=== PATIENT | female | born 1985 | race Caucasian/White ===

== ENCOUNTER 2021-03-28 09:27 | Inpatient (IN) ==
[2021-03-28] MEDS: LACTATED RINGERS 1,000 ML IV SCH ×2 (10:15→11:39)
[2021-03-28] MEDS ORDERED: FAMOTIDINE 20 MG/2 ML VIAL IV ONE (10:19)
[2021-03-28] MEDS ORDERED: ceFAZolin 2,000 MG/50 ML DUPLEX IV ONE (10:19)
[2021-03-28] MEDS ORDERED: CITRIC ACID/SODIUM CITRATE 30 ML UDCUP PO ONE (10:19)
[2021-03-28 10:45] LABS: Basophils % 0.4 % (0.0-0.8); Eosinophils # 0.1 10*3/uL (0.0-0.87); Eosinophils % 0.8 % (0.00-10.9); Hematocrit 33.1 VOL% (35.7-47.0); Hemoglobin 10.8 GM/DL (12.0-16.0); Immature Granulocytes % 1.6 %; Immature Granulocytes Absolute 0.16 #; Lymphocytes # 1.4 10*3/uL (1.4-4.0); Lymphocytes % 14.7 % (21.3-54.2); Mean Corpuscular HGB Conc 32.6 GM/DL (32-36); Mean Corpuscular Volume 83.6 FL (87-102); Mean Platelet Volume 10.6 FL (9.6-12.0); Monocytes % 5.2 % (1.7-12.7); Neutrophils % 77.3 % (38.7-73.9); Platelet Count 207 T/CUMM (130-400); Red Blood Count 3.96 MC/CUMM (3.8-5.5); Red Cell Distribution Width 15.2 % (9.3-17.3); White Blood Count 9.7 T/CUMM (4-12)
[2021-03-28 10:58] LABS: Bacteria,Urine Occasional /HPF (Few); Bilirubin,Urine Negative (Negative); Blood, Urine Moderate mg/dL (Negative); Glucose,Urine (UA) Negative (Negative); Ketones,Urine Negative (Negative); Mucus,Urine Few /LPF (Occasional); Nitrite,Urine Negative (Negative); Protein,Urine 100 MG/DL; RBC,Urine 72 /HPF (0-4); Squamous Epithelial Cell,Urine Few /HPF (0-10); Urine Appearance Slightly Hazy (Clear); Urine Color Yellow (Yellow); Urine Specific Gravity 1.017 (1.001-1.035); Urine Urobilinogen < 2.0 EU/DL (0.2-1.0)
[2021-03-28 11:09] LABS: Alanine Aminotransferase 10 U/L (13-56); Albumin 2.6 G/DL (3.4-5.0); Alkaline Phosphatase 121 U/L (45-117); Aspartate Amino Transferase 14 U/L (0-37); Bilirubin,Total < 0.39 MG/DL (0.20-1.00); Blood Urea Nitrogen 9 MG/DL (7-18); Carbon Dioxide 19 MMOL/L (21-32); Estimated Glom Filtration Rate 139 ML/MIN; Glucose 87 MG/DL (74-106); Osmolality,Calculated 270.8 MOS/KG (273-304); Potassium 4.1 MMOL/L (3.5-5.1); Sodium 137 MMOL/L (136-145); Total Protein 7.2 G/DL (6.4-8.2)
[2021-03-28] MEDS ORDERED: ONDANSETRON 4 MG/2 ML VIAL IV PRN (12:03)
[2021-03-28] MEDS ORDERED: MEPERIDINE 50 MG/1 ML VIAL IV ONE (12:03)
[2021-03-28] MEDS ORDERED: OXYTOCIN/LR 20 UNIT/1,000 ML BAG IV ONE ×3 (13:29→17:39)
[2021-03-28] MEDS ORDERED: METHYLERGONOVINE 0.2 MG/1 ML AMP ONE (13:29)
[2021-03-28] MEDS ORDERED: miSOPROStoL 200 MCG TABLET ONE (13:29)
[2021-03-28] MEDS ORDERED: CARBOPROST TROMETHAMINE 250 MCG/ML AMP IM ONE (13:30)
[2021-03-28] MEDS ORDERED: PHENYLEPHRINE 1 MG/10 ML SYRINGE IV ONE (13:48)
[2021-03-28] MEDS ORDERED: BUPIVACAINE SPINAL 0.75% 2 ML AMP SPINAL ONE (13:48)
[2021-03-28] MEDS ORDERED: ONDANSETRON 4 MG/2 ML VIAL ONE (13:48)
[2021-03-28 14:47] LABS: Cord Arterial Blood HCO3 20.4 MMOL/L
[2021-03-28 14:50] LABS: Cord Venous Blood HCO3 21.5 MMOL/L; Cord Venous Blood PCO2 44.6 MMHG; Cord Venous Blood PO2 23.3
[2021-03-28 15:02] LABS: Bacteria,Urine Occasional /HPF (Few); Bilirubin,Urine Negative (Negative); Blood, Urine Negative (Negative); Glucose,Urine (UA) Negative (Negative); Hyaline Casts,Urine 1 /LPF (0-3); Ketones,Urine 80 mg/dL (Negative); Mucus,Urine Occasional /LPF (Occasional); Nitrite,Urine Negative (Negative); Protein,Urine Negative; RBC,Urine 1 /HPF (0-4); Urine Appearance CLEAR (Clear); Urine Color Yellow (Yellow); Urine Specific Gravity 1.019 (1.001-1.035); Urine Urobilinogen < 2.0 EU/DL (0.2-1.0)
[2021-03-28] MEDS ORDERED: ACETAMINOPHEN INJ 1,000 MG/100 ML VIAL IV ONE (15:12)
[2021-03-28] MEDS ORDERED: RHO(D) IMMUNE GLOBULIN 300 MCG SYRINGE IM ONE (17:39)
[2021-03-28] MEDS ORDERED: ACETAMINOPHEN 325 MG TABLET PO PRN (17:39)
[2021-03-28] MEDS ORDERED: IBUPROFEN 800 MG TABLET PO PRN (17:39)
[2021-03-28] MEDS: ACETAMINOPHEN 500 MG TABLET PO SCH (21:42)
[2021-03-28] MEDS: KETOROLAC 30 MG/1 ML VIAL IV SCH (22:37)
[2021-03-28] MEDS: DOCUSATE SODIUM 100 MG CAPSULE PO SCH (22:45)
[2021-03-29] MEDS: KETOROLAC 30 MG/1 ML VIAL IV SCH ×2 (04:26→10:04)
[2021-03-29] MEDS: ACETAMINOPHEN 500 MG TABLET PO SCH ×2 (04:26→09:00)
[2021-03-29 06:16] LABS: Basophils % 0.3 % (0.0-0.8); Eosinophils # 0.2 10*3/uL (0.0-0.87); Eosinophils % 1.3 % (0.00-10.9); Hematocrit 26.1 VOL% (35.7-47.0); Hemoglobin 8.2 GM/DL (12.0-16.0); Immature Granulocytes Absolute 0.12 #; Lymphocytes # 1.4 10*3/uL (1.4-4.0); Lymphocytes % 11.6 % (21.3-54.2); Mean Corpuscular HGB Conc 31.4 GM/DL (32-36); Mean Corpuscular Volume 85.9 FL (87-102); Mean Platelet Volume 10.3 FL (9.6-12.0); Neutrophils % 81.8 % (38.7-73.9); Platelet Count 149 T/CUMM (130-400); Red Blood Count 3.04 MC/CUMM (3.8-5.5); Red Cell Distribution Width 15.3 % (9.3-17.3); White Blood Count 11.7 T/CUMM (4-12)
[2021-03-29] MEDS: oxyCODONE/ACETAMINOPHEN 5-325 MG TABLET PO PRN ×3 (07:34→19:55)
[2021-03-29] MEDS: DOCUSATE SODIUM 100 MG CAPSULE PO SCH ×2 (07:34→19:55)
[2021-03-29] MEDS: MULTIVITAMIN (PRENATAL) TABLET PO SCH (07:34)
[2021-03-29] MEDS ORDERED: oxyCODONE/ACETAMINOPHEN 5-325 MG TABLET ONE (07:37)
[2021-03-29] MEDS: MAGNESIUM HYDROXIDE SUSP 30 ML UDCUP PO PRN ×2 (07:40→19:55)
[2021-03-29] MEDS: SIMETHICONE CHEW 80 MG TABLET PO PRN (14:01)
[2021-03-29] MEDS: FERROUS SULFATE 325 MG TABLET PO SCH (21:15)
[2021-03-30] MEDS: IBUPROFEN 800 MG TABLET PO PRN ×4 (00:30→22:40)
[2021-03-30] MEDS: SIMETHICONE CHEW 80 MG TABLET PO PRN ×2 (00:30→19:58)
[2021-03-30] MEDS: MULTIVITAMIN (PRENATAL) TABLET PO SCH (07:24)
[2021-03-30] MEDS: FERROUS SULFATE 325 MG TABLET PO SCH ×3 (07:24→21:09)
[2021-03-30] MEDS: DOCUSATE SODIUM 100 MG CAPSULE PO SCH ×2 (07:24→19:59)
[2021-03-30] MEDS ORDERED: BISACODYL 10 MG SUPP RECTAL PRN (09:52)
[2021-03-30] MEDS: oxyCODONE/ACETAMINOPHEN 5-325 MG TABLET PO PRN ×3 (11:34→23:32)
[2021-03-30] MEDS ORDERED: HYDROCORTISONE 2.5% CREAM 30 GM TUBE TOP PRN (19:49)
[2021-03-30] MEDS: MAGNESIUM HYDROXIDE SUSP 30 ML UDCUP PO PRN (19:59)
[2021-03-30] MEDS ORDERED: KETOROLAC 30 MG/1 ML VIAL IM ONE (22:25)
[2021-03-31] MEDS: IBUPROFEN 800 MG TABLET PO PRN (06:49)
[2021-03-31] MEDS: oxyCODONE/ACETAMINOPHEN 5-325 MG TABLET PO PRN ×2 (06:50→11:39)
[2021-03-31 07:28] LABS: HIV Antigen/Antibody Result Nonreactive (Nonreactive); Hepatitis B Surface Ag Quant < 0.10 Index; Hepatitis B Surface Ag Result Non-Reactive (NonReactive); Rubella Antibody IgG Result Reactive (NonReactive)
[2021-03-31] MEDS: MULTIVITAMIN (PRENATAL) TABLET PO SCH (08:46)
[2021-03-31] MEDS: DOCUSATE SODIUM 100 MG CAPSULE PO SCH (08:46)
[2021-03-31] MEDS: FERROUS SULFATE 325 MG TABLET PO SCH (08:46)
[2021-03-31 10:29] VITALS: BP 111/68
[2021-03-31] MEDS: SIMETHICONE CHEW 80 MG TABLET PO PRN (11:54)
== END 2021-03-31 14:45 | disposition home or self-care (01) | DRG 783 ==
LOC: N.LDOUT 09:27 → N.LD 09:27 → N.OB 21:57
PROVIDERS: ADMIT Obstetrics & Gynecology; ATTEND Obstetrics & Gynecology